=== PATIENT | female | born 1955 | race Caucasian/White ===

== ENCOUNTER 2023-07-26 10:10 | Inpatient (IN) | payer MEDICARE ==
--- NOTE | 2023-07-26 10:31 | ED ---
General Adult HPI - General Stated complaint: low sodium-sent by PCP Time Seen by Provider: 07/26/23 10:29 Source: patient, RN notes reviewed Mode of arrival: ambulatory Limitations: no limitations - History of Present Illness Initial comments: 68-year-old female presents emergency Department with chief complaint of hyponatremia. Patient sent in by PCP stating that sodium is 116. She states that it was 120 something and dropped further. She states that she has had some diarrhea also her PCP is concerned about possible tumor in her chest causing her hyponatremia. Patient states that she does not feel well she states she does feel very weak - Related Data Allergies Allergy/AdvReac Type Severity Reaction Status Date / Time erythromycin base AdvReac Abdominal Verified 07/26/23 10:27 Pain Penicillins AdvReac Rash/Hives Verified 07/26/23 10:27 Review of Systems ROS Statement: Those systems with pertinent positive or pertinent negative responses have been documented in the HPI. ROS Other: All systems not noted in ROS Statement are negative. General Exam - General Exam Comments Initial Comments: Visual Physical Exam Vital signs reviewed General: Well-appearing, nontoxic, no acute distress. Head: Normocephalic, atraumatic Eyes: PERRLA, EOMI ENT: Airway patent Chest: Nonlabored breathing Skin: No visual rash, normal skin tone Neuro: Alert and oriented 3 Musculoskeletal: No gross abnormalities Limitations: no limitations General appearance: alert, in no apparent distress Head exam: Present: atraumatic, normocephalic, normal inspection Eye exam: Present: normal appearance, PERRL, EOMI. Absent: scleral icterus, conjunctival injection, periorbital swelling ENT exam: Present: normal exam, normal oropharynx, mucous membranes moist Neck exam: Present: normal inspection, full ROM. Absent: tenderness, meningismus, lymphadenopathy Respiratory exam: Present: normal lung sounds bilaterally. Absent: respiratory distress, wheezes, rales, rhonchi, stridor Cardiovascular Exam: Present: regular rate, normal rhythm, normal heart sounds. Absent: systolic murmur, diastolic murmur, rubs, gallop, clicks GI/Abdominal exam: Present: soft, normal bowel sounds. Absent: distended, tenderness, guarding, rebound, rigid Neurological exam: Present: alert, oriented X3 Course Vital Signs 07/26/23 10:28 Temperature 98.6 F Pulse Rate 84 Respiratory 16 Rate Blood Pressure 123/80 O2 Sat by Pulse 97 Oximetry Medical Decision Making - Medical Decision Making I performed a quick note portion of the chart signed Guillermo Lerner PA-C Was pt. sent in by a medical professional or institution (DENISE Whitlock, OIL FIELD TECHNICIAN, urgent care, hospital, or fpc...) When possible be specific @ -PCP Did you speak to anyone other than the patient for history (EMS, parent, family, police, friend...)? What history was obtained from this source @ -No Did you review nursing and triage notes (agree or disagree)? Why? @ -I reviewed and agree with nursing and triage notes Were old charts reviewed (outside hosp., previous admission, EMS record, old EKG, old radiological studies, urgent care reports/EKG's, fpc records)? Report findings @ -Reviewed prior laboratory studies, charts Differential Diagnosis (chest pain, altered mental status, abdominal pain women, abdominal pain men, vaginal bleeding, weakness, fever, dyspnea, syncope, headache, dizziness, GI bleed, back pain, seizure, CVA, palpatations, mental health, musculoskeletal)? @ -Differential Weakness: Hypoglycemia, shock, sepsis, hyponatremia, anemia, infection, PA, ETOH, adverse medicine reaction, overdose, stroke, this is not meant to be an all-inclusive list.le EKG interpreted by me (3pts min.). @ -None X-rays interpreted by me (1pt min.). @ -None done CT interpreted by me (1pt min.). @ -CT chest is pending U/S interpreted by me (1pt. min.). @ -None done What testing was considered but not performed or refused? (CT, X-rays, U/S, labs)? Why? @ -None What meds were considered but not given or refused? Why? @ -None Did you discuss the management of the patient with other professionals (estelle erickson i.eDENISE Canales Dr., OIL FIELD TECHNICIAN, lab, RT, psych nurse, administrator social welfare, stripper and printer, teacher, commissioned defence force officer, case finisher)? Give summary @ -Dr. Grene for admission secondary to hyponatremia Was smoking cessation discussed for >3mins.? @ -No Was critical care preformed (if so, how long)? @ -No Were there social determinants of health that impacted care today? How? (Homelessness, low income, unemployed, alcoholism, drug addiction, transportation, low edu. Level, literacy, decrease access to med. care, senior living, rehab)? @ -No Was there de-escalation of care discussed even if they declined (Discuss DNR or withdrawal of care, Hospice)? DNR status @ -No What co-morbidities impacted this encounter? (DM, HTN, Smoking, COPD, CAD, Cancer, CVA, ARF, Chemo, Hep., AIDS, mental health diagnosis, sleep apnea, morbid obesity)? @ -None Was patient admitted / discharged? Hospital course, mention meds given and route, prescriptions, significant lab abnormalities, going to OR and other pertinent info. @ -Admitted patient has Hyponatremia at 118 patient was given fluid bolus, weakness fluids. Patient will be admitted for further evaluation, nephrology evaluation Undiagnosed new problem with uncertain prognosis? @ -No Drug Therapy requiring intensive monitoring for toxicity (Heparin, Nitro, Insulin, Cardizem)? @ -No Were any procedures done? @ -No Diagnosis/symptom? @ -Hyponatremia Acute, or Chronic, or Acute on Chronic? @ -Acute Uncomplicated (without systemic symptoms) or Complicated (systemic symptoms)? @ - complicated Side effects of treatment? @ -No Exacerbation, Progression, or Severe Exacerbation? @ -No Poses a threat to life or bodily function? How? (Chest pain, USA, PA, pneumonia, PE, COPD, DKA, ARF, appy, cholecystitis, CVA, Diverticulitis, Homicidal, Suicidal, threat to staff... and all critical care pts) @ -No - Lab Data Result diagrams: 07/26/23 12:04 07/26/23 12:04 Lab Results 07/26/23 07/26/23 07/26/23 Range/Units 12:04 12:04 12:04 WBC 9.0 (3.8-10.6) k/uL RBC 5.37 (3.80-5.40) m/uL Hgb 17.7 H (11.4-16.0) gm/dL Hct 49.7 H (34.0-46.0) % MCV 92.5 (80.0-100.0) fL MCH 33.0 (25.0-35.0) pg MCHC 35.6 (31.0-37.0) g/dL RDW 12.3 (11.5-15.5) % Plt Count 205 (150-450) k/uL MPV 7.9 Sodium 118 L* (137-145) mmol/L Potassium 5.3 H (3.5-5.1) mmol/L Chloride 82 L (98-107) mmol/L Carbon Dioxide 25 (22-30) mmol/L Anion Gap 11 mmol/L BUN 29 H (7-17) mg/dL Creatinine 0.89 (0.52-1.04) mg/dL Est GFR (CKD-EPI)AfAm 77 (>60 ml/min/1.73 sqM) Est GFR (CKD-EPI)NonAf 67 (>60 ml/min/1.73 sqM) Glucose 127 H (74-99) mg/dL Calcium 10.2 (8.4-10.2) mg/dL Magnesium 1.5 L (1.6-2.3) mg/dL Total Bilirubin 0.8 (0.2-1.3) mg/dL AST 36 (14-36) U/L ALT 24 (4-34) U/L Alkaline Phosphatase 61 (38-126) U/L Total Protein 7.6 (6.3-8.2) g/dL Albumin 4.8 (3.5-5.0) g/dL Urine Color Colorless Urine Appearance Clear (Clear) Urine pH 5.0 (5.0-8.0) Ur Specific [place] 1.005 (1.001-1.035) Urine Protein Negative (Negative) Urine Glucose (UA) Negative (Negative) Urine Ketones Negative (Negative) Urine Blood Negative (Negative) Urine Nitrite Negative (Negative) Urine Bilirubin Negative (Negative) Urine Urobilinogen <2.0 (<2.0) mg/dL Ur Leukocyte Esterase Negative (Negative) Disposition Clinical Impression: Hyponatremia Disposition: ADMITTED IP TO THIS HOSP Condition: Fair Referrals: Jose Ramos MD [Primary Care Provider] - 1-2 days Time of Disposition: 12:48
[2023-07-26] MEDS ORDERED: SODIUM CHLORIDE 0.9% 500 ML 500 ML IV ONE (11:16)
[2023-07-26 12:14] LABS: HCT 49.7 % (34.0-46.0); HGB 17.7 gm/dL (11.4-16.0); MCHC 35.6 g/dL (31.0-37.0); MCV 92.5 fL (80.0-100.0); Mean Platelet Volume 7.9; Platelet Count 205 k/uL (150-450); RBC 5.37 m/uL (3.80-5.40); RDW 12.3 % (11.5-15.5)
[2023-07-26] MEDS: SODIUM CHLORIDE 0.9% 1,000 ML IV SCH ×2 (12:17→12:19)
[2023-07-26 12:18] LABS: Appearance,Urine Clear (Clear); Bilirubin,Urine Negative (Negative); Blood,Urine Negative (Negative); Color,Urine Colorless; Glucose,Urine (UA) Negative (Negative); Ketones,Urine Negative (Negative); Leukocyte Esterase,Urine Negative (Negative); Nitrite,Urine Negative (Negative); Protein,Urine Negative (Negative); Specific Gravity,Urine 1.005 (1.001-1.035); Urobilinogen,Urine <2.0 mg/dL (<2.0)
[2023-07-26 12:25] LABS: ALT 24 U/L (4-34); AST 36 U/L (14-36); African American GFR (CKD) 77 (>60 ml/min/1.73 sqM); Albumin 4.8 g/dL (3.5-5.0); Alkaline Phosphatase 61 U/L (38-126); Anion Gap 11 mmol/L; Blood Urea Nitrogen 29 mg/dL (7-17); Calcium 10.2 mg/dL (8.4-10.2); Carbon Dioxide 25 mmol/L (22-30); Chloride 82 mmol/L (98-107); Glucose 127 mg/dL (74-99); Magnesium 1.5 mg/dL (1.6-2.3); Non-African American GFR(CKD) 67 (>60 ml/min/1.73 sqM); Potassium 5.3 mmol/L (3.5-5.1); Total Bilirubin 0.8 mg/dL (0.2-1.3); Total Protein 7.6 g/dL (6.3-8.2)
[2023-07-26 12:28] LABS: Sodium 118 mmol/L (137-145)
[2023-07-26] MEDS ORDERED: ONDANSETRON 4 MG/2 ML VIAL IVP PRN (12:48)
[2023-07-26] MEDS ORDERED: NALOXONE 0.4 MG/ML 1 ML VIAL IV PRN (12:48)
[2023-07-26] MEDS ORDERED: ACETAMINOPHEN TAB 325 MG TAB PO PRN (12:48)
--- NOTE | 2023-07-26 13:15 | CT ---
EXAMINATION TYPE: CT chest wo con DATE OF EXAM: 07/26/2023 COMPARISON: None HISTORY: low sodium CT DLP: 273.[address] of the chest was performed with lung and mediastinal window settings submitted. The la ck of contrast limits evaluation of the vascular, mediastinal and parenchymal structures including th e upper abdomen. LUNGS: Mild upper lobe emphysematous change. The lungs are clear and free of infiltrate. No atelectas is. No pulmonary nodule or mass is detected. No pleural effusion. No CT evidence of interstitial l garcia disease. MEDIASTINUM/EDER: Thoracic aorta is of normal caliber with limited evaluation given lack of contrast . The heart is not enlarged. No evidence for mediastinal mass. No lymph nodes greater than 1cm. UPPER ABDOMEN: No significant abnormality is seen. OTHER: No significant other abnormality. IMPRESSION: 1. Mild upper lobe emphysematous change. No evidence of infiltrate or mass.
[2023-07-26] MEDS ORDERED: Potassium Replacement Protocol 1 EACH MISC MISCELLANE PRN (13:47)
[2023-07-26] MEDS ORDERED: hydrALAZINE HCL 50 MG TAB PO PRN (13:47)
[2023-07-26] MEDS ORDERED: ALBUTEROL HFA INHALER INHALATION PRN (13:47)
[2023-07-26] MEDS ORDERED: Magnesium Replacement Protocol 1 EACH MISC MISCELLANE PRN (13:47)
[2023-07-26] MEDS ORDERED: LORazepam 0.5 MG TAB PO PRN (13:48)
--- NOTE | 2023-07-26 15:01 | P.NPCON ---
History of Present Illness - Reason for Consult hyponatremia - History of Present Illness Reason for consultation: Hyponatremia History of present illness: Patient is a 68-year-old female seen in consultation for hyponatremia. Patient's is her sodium level was running low around 120 and she saw her primary care physician. Her diuretic. Patient believes the diuretic was spironolactone. She had a bilirubin yesterday and was advised to go to the hospital her sodium level was down to 116. Today in the ER blood work shows sodium level of 118. She denies any vomiting or diarrhea. Oral intake has been good. Denies drinking excessive fluid. No history of cancer. She does admit to smoking 2 packs a day of cigarettes. No recent lung infection. She has history of hypertension and blood pressure is currently well controlled. She is on room air. No edema. GFR at baseline. No history of kidney disease. Vital signs are stable. General: No acute distress. HEENT: Head exam is unremarkable. LUNGS: No audible rhonchi or wheezes. HEART: Rate and Rhythm are regular. ABDOMEN: Nontender. EXTREMITITES: No edema. Past Medical History Past Medical History: COPD, Hyperlipidemia, Hypertension History of Any Multi-Drug Resistant Organisms: None Reported Past Surgical History: No Surgical Hx Reported Past Psychological History: No Psychological Hx Reported Smoking Status: Current every day smoker Past Alcohol Use History: Daily Past Drug Use History: None Reported Medications and Allergies Home Medications Medication Instructions Recorded Confirmed Type Albuterol Sulfate [Albuterol 1 - 2 puff PO RT-Q6H PRN 07/26/23 07/26/23 History Sulfate Hfa] Cholecalciferol [Vitamin D3 (25 50 mcg PO DAILY 07/26/23 07/26/23 History Mcg = 1000 Iu)] Esomeprazole Magnesium [NexIUM] 40 mg PO DAILY 07/26/23 07/26/23 History Magnesium 750 mg PO HS 07/26/23 07/26/23 History Metoprolol Succinate (ER) [Toprol 25 mg PO DAILY 07/26/23 07/26/23 History Xl] Montelukast Sodium 10 mg PO HS 07/26/23 07/26/23 History Olmesartan Medoxomil [Benicar] 40 mg PO DAILY 07/26/23 07/26/23 History amLODIPine [Norvasc] 5 mg PO DAILY 07/26/23 07/26/23 History hydrALAZINE HCL [Apresoline] 50 mg PO BID PRN 07/26/23 07/26/23 History Allergies Allergy/AdvReac Type Severity Reaction Status Date / Time erythromycin base AdvReac Abdominal Verified 07/26/23 13:03 Pain Penicillins AdvReac Rash/Hives Verified 07/26/23 13:03 Physical Exam Vitals: Vital Signs Temp Pulse Resp BP Pulse Ox 07/26/23 14:00 93 18 116/54 98 07/26/23 10:28 98.6 F 84 16 123/80 97 Intake and Output 07/25/23 07/26/23 07/26/23 22:59 06:59 14:59 Other: Weight 65.771 kg Results - Lab Results Most recent lab results Calcium 10.2 mg/dL (8.4-10.2) 07/26/23 12:04 Magnesium 1.5 mg/dL (1.6-2.3) L 07/26/23 12:04 07/26/23 12:04 07/26/23 12:04 Assessment and Plan Plan: Assessment: 1. Hyponatremia. Appears euvolemic. Sodium level 118 today. TSH normal. No malignancy noted on CT chest. 2. Tobacco abuse. 3. Benign hypertension. Currently controlled. 4. Hypomagnesemia possibly from poor intake and PPI use. Plan: Maintain normal saline. Add 1500 mL fluid restriction. Encourage oral intake. Check serum and urine osmolality and urine sodium level. Check a.m. cortisol level. Check PTH related peptide. Repeat sodium level at 5 PM. Hold amlodipine for systolic blood pressure less than 120. Replace magnesium. Thank you for the consultation. I will continue to follow the patient with you during her hospital stay.
[2023-07-26] MEDS: NICOTINE 14MG/24HR PATCH TRANSDERM SCH (18:47)
[2023-07-26] MEDS: MAGNESIUM OXIDE 400 MG TAB PO SCH (20:30)
[2023-07-26] MEDS ORDERED: MONTELUKAST 10 MG TAB PO SCH (21:00)
[2023-07-26] MEDS ORDERED: MAGNESIUM OXIDE 400 MG TAB PO SCH (21:00)
[2023-07-26 22:16] VITALS: RESP 16
--- NOTE | 2023-07-27 01:37 | HP ---
HISTORY AND PHYSICAL CHIEF COMPLAINT: Hyponatremia. HISTORY OF PRESENT ILLNESS: This is a 68-year-old woman with a past medical history of multiple medical history of COPD, hypertension, hyperlipidemia, was not feeling well over the past couple of weeks. The patient has significant diarrhea. Sodium was found to be 116. The patient initially had sodium of 120, and because of lack of improvement, the patient came to [facility] for evaluation and treatment. Currently, her sodium is 118 and is hospitalized at . There is no history of any fever or rigors. PAST MEDICAL HISTORY: Hypertension, hyperlipidemia, COPD. HOME MEDICATIONS: Include Singulair. Dose and rest of medications noted. ALLERGIES: Erythromycin. FAMILY HISTORY: No history of heart disease or strokes in the family. SOCIAL HISTORY: History of smoking. REVIEW OF SYSTEMS: 14-point review is negative except as mentioned. PHYSICAL EXAMINATION: VITAL SIGNS: Pulse 84, blood pressure 120/80, respirations 16. HEENT: Conjunctivae normal. Oral mucosa is dry. NECK: No jugular venous distention. No carotid bruit. RESPIRATION: Diminished at the bases. No rhonchi. No crackles. ABDOMEN: Soft, nontender. LEGS: No edema, no cyanosis. NEUROLOGIC: No focal deficit. SKIN: No ulcer, rash, or swelling. JOINTS: No active deforming arthropathy LABORATORY DATA: Reviewed. Sodium 119. ASSESSMENT: 1. Hypovolemic hyponatremia, possibly rule out syndrome of inappropriate antidiuretic hormone secretion. 2. Chronic obstructive pulmonary disease. 3. Hypertension. 4. Hyperlipidemia. 5. History of recent diarrheal episode. RECOMMENDATION: This 68-year-old woman presented with multiple complex medical issues, we will monitor the patient closely. I would recommend IV fluids. Nephrology consultation, monitor sodium closely, resume the home medications. Monitor fluid/electrolyte balance closely and CT scan of the chest was also done showed only emphysematous changes in the upper lobes. No other significant lesions were identified. Prognosis guarded. Further recommendations to follow. See orders for details. MMODL / IJN: [id number] / MTDD
[2023-07-27] MEDS ORDERED: PANTOPRAZOLE 40 MG TABLET PO SCH (07:30)
[2023-07-27 07:36] VITALS: BP 109/70; PULSE 88; TEMP 97.5
[2023-07-27] MEDS: MAGNESIUM OXIDE 400 MG TAB PO SCH (08:28)
[2023-07-27] MEDS: NICOTINE 14MG/24HR PATCH TRANSDERM SCH (08:29)
[2023-07-27] MEDS: amLODIPine 5 MG TAB PO SCH ×2 (08:29→08:31)
[2023-07-27] MEDS: SODIUM CHLORIDE 0.9% 1,000 ML IV SCH (08:30)
[2023-07-27] MEDS: IOPAMIDOL CONTRAST (ORAL USE) VIAL PO PRN ×2 (08:45→09:51)
[2023-07-27] MEDS ORDERED: LOSARTAN 50 MG TAB PO SCH ×2 (09:00)
[2023-07-27] MEDS ORDERED: METOPROLOL SUCCINATE (ER) 25 MG TAB.ER.24H PO SCH (09:00)
[2023-07-27] MEDS ORDERED: CHOLECALCIFEROL 25 MCG (1000 IU) TABLET PO SCH (09:00)
--- NOTE | 2023-07-27 11:58 | P.PN ---
Subjective Patient is seen in follow-up for hyponatremia. Sodium level 121 as of last night. Currently on normal saline at 75 mL an hour. No chest pain or shortness of breath. Vital signs are stable. General: No acute distress. HEENT: Head exam is unremarkable. LUNGS: No audible rhonchi or wheezes. HEART: Rate and Rhythm are regular. ABDOMEN: Nontender. EXTREMITITES: No edema. Objective - Vital Signs Vital signs: Vital Signs Temp 97.5 F L 07/27/23 07:03 Pulse 88 07/27/23 07:03 Resp 16 07/27/23 07:03 BP 109/70 07/27/23 07:03 Pulse Ox 94 L 07/27/23 07:03 FiO2 Intake & Output 07/26/23 07/27/23 07/27/23 18:59 06:59 18:59 Intake Total 750 720 Balance 750 720 Weight 65.771 kg 65.771 kg Intake: IV 250 Sodium Chloride 0.9% 1, 250 000 ml @ 75 mls/hr IV . [id number] [facility] Rx#:[id number] Oral 500 720 Other: # Voids 1 1 - Labs CBC & Chem 7: 07/26/23 12:04 07/26/23 16:50 Labs: Abnormal Lab Results - Last 24 Hours (Table) 07/26/23 07/26/23 07/26/23 Range/Units 12:04 12:04 12:04 Hgb 17.7 H (11.4-16.0) gm/dL Hct 49.7 H (34.0-46.0) % Sodium 118 L* (137-145) mmol/L Potassium 5.3 H (3.5-5.1) mmol/L Chloride 82 L (98-107) mmol/L BUN 29 H (7-17) mg/dL Glucose 127 H (74-99) mg/dL Osmolality 254 L (280-301) mosm/kg Magnesium 1.5 L (1.6-2.3) mg/dL Ur Random Sodium 26 L (40-220) mmol/L 07/26/23 07/26/23 Range/Units 16:50 16:50 Hgb (11.4-16.0) gm/dL Hct (34.0-46.0) % Sodium 121 L (137-145) mmol/L Potassium (3.5-5.1) mmol/L Chloride (98-107) mmol/L BUN (7-17) mg/dL Glucose (74-99) mg/dL Osmolality 264 L (280-301) mosm/kg Magnesium (1.6-2.3) mg/dL Ur Random Sodium (40-220) mmol/L Assessment and Plan Plan: Assessment: 1. Hyponatremia. Appears euvolemic. Sodium level 121 as of yesterday evening. TSH normal. No malignancy noted on CT chest. Urine sodium 26 and urine osmolality to 11. 2. Tobacco abuse. 3. Benign hypertension. Currently controlled. 4. Hypomagnesemia possibly from poor intake and PPI use. Plan: Maintain normal saline. Maintain 1500 mL fluid restriction. Encourage oral intake. Add ensure 3 times a day with meals. Follow-up a.m. cortisol level. Follow-up PTH related peptide. Follow-up computed tomography scan. Morning labs pending.
[2023-07-27 13:45] LABS: Basophils # (A) 0.05 X 10*3/uL (0.00-0.10); Basophils % (A) 0.8 %; Eosinophils # (A) 0.13 X 10*3/uL (0.04-0.35); Eosinophils % (A) 2.1 %; HCT 42.8 % (37.2-46.3); Lymphocytes # (A) 1.77 X 10*3/uL (0.90-5.00); Lymphocytes % (A) 28.2 %; MCH 31.6 pg (27.0-32.0); MCV 90.3 FL (80.0-97.0); Mean Platelet Volume 10.3 FL (9.5-12.2); Monocytes # (A) 0.92 X 10*3/uL (0.20-1.00); Monocytes % (A) 14.7 %; NRBC Per 100 WBC 0 X 10*3/uL (0.00-0.01); Neutrophils # (A) 3.36 X 10*3/uL (1.80-7.70); Neutrophils % (A) 53.6 %; Platelet Count 177 X 10*3/uL (140-440); RBC 4.74 X 10*6/uL (4.10-5.20); WBC 6.27 X 10*3/uL (4.50-10.00)
[2023-07-27 14:02] LABS: ALT 19 U/L (8-44); AST 25 U/L (13-35); Albumin/Globulin Ratio 2.35 Ratio (1.60-3.17); Alkaline Phosphatase 50 U/L (41-126); Blood Urea Nitrogen 19.8 mg/dL (9.0-27.0); C Reactive Protein <0.30 mg/dL (0.00-0.80); Calcium 8.9 mg/dL (8.7-10.3); Carbon Dioxide 23.7 mmol/L (21.6-31.8); Chloride 93 mmol/L (96-109); Globulin 1.7 g/dL (1.6-3.3); Glucose 88 mg/dL (70-110); Magnesium 1.6 mg/dL (1.5-2.4); Potassium 4.8 mmol/L (3.5-5.5); Sodium 126 mmol/L (135-145); Total Bilirubin 0.3 mg/dL (0.3-1.2); Total Protein 5.7 g/dL (6.2-8.2)
[2023-07-27 14:10] LABS: Erythrocyte Sedimentation Rate 5 mm/Hr (0-30)
--- NOTE | 2023-07-27 19:13 | CT ---
EXAMINATION TYPE: CT abdomen pelvis wo/w con DATE OF EXAM: 07/27/2023 COMPARISON: NONE HISTORY: 68-year-old female Severe hyponatremia, r/o malignancy. TECHNIQUE: Contiguous axial scanning of the abdomen and pelvis before and after administration of 100 ml Isovue 300 IV contrast. Delayed images through the kidneys and coronal/sagittal reconstructions performed. CT DLP: 931.60 mGycm Automated exposure control for dose reduction was used. FINDINGS: The heart is normal size without pericardial effusion. Suggestion of some underlying emphys ematous change in the lower lungs. Approximately 3 small hepatic hypodensities measuring up to 9 mm likely tiny cysts. A calcification i n the left liver lobe may reflect sequela of prior granulomatous disease. Portal venous system is pat ent. No biliary ductal dilatation. Gallbladder, right kidney, and pancreas within normal limits. There is a 2.0 cm cortical cyst posteri or left kidney. Symmetric uptake and excretion of contrast from both kidneys. Punctate calcification in the spleen may reflect prior granulomatous disease. Suggestion of moderate diffuse gastric fold thickening. There is mild diffuse bilateral adrenal thickening without discrete nodularity. No dilated small bowel, free fluid, or free air. No mesenteric or retroperitoneal lymphadenopathy. Normal appendix. Oral contrast has progressed to the rectum. There is a redundant mid to distal sigmo id colon. Mild sigmoid diverticulosis. No pericolonic inflammatory change. Bladder partially distended. Uterus anteverted. Both ovaries are visualized. Mild circumferential felipe dder wall thickening may be chronic for the patient. No abnormal fluid collection in the pelvis or pe lvic lymphadenopathy. Bones: Mild degenerative change at the hips. Moderate to advanced degenerative disc disease L5-S1 and facet arthropathy lower lumbar spine. Degenerative grade 1 retrolisthesis L2-L3. IMPRESSION: 1. MODERATE FOLD THICKENING THROUGHOUT THE STOMACH MAY REFLECT UNDERLYING GASTRITIS. CORRELATE WITH S YMPTOMS. DIRECT VISUALIZATION IF CLINICALLY INDICATED. 2. MILD SIGMOID DIVERTICULOSIS WITHOUT ACUTE DIVERTICULITIS. 3. MILD CIRCUMFERENTIAL BLADDER WALL THICKENING MAY BE CHRONIC FROM THE PATIENT. CORRELATE TO EXCLUDE CYSTITIS. 4. MILD DIFFUSE THICKENING OF THE BILATERAL ADRENAL GLANDS MAY REFLECT UNDERLYING ADRENAL HYPERPLASIA . NO DISCRETE NODULARITY IS SEEN. 5. NO SUSPICIOUS MASS OR LYMPHADENOPATHY IDENTIFIED.
--- NOTE | 2023-07-29 09:54 | P.DS ---
Providers Date of admission: 07/26/23 12:44 Expected date of discharge: 07/29/23 Attending physician: Esperanza Green Consults: 07/26/23 12:48 Consult Physician Urgent Consulting Provider: Jose Ramos Consult Reason/Comments: Hyponatremia Do you want consulting provider notified?: Yes Primary care physician: Jose Ramos [facility] Course: Final diagnosis Hypovolemic hyponatremia, possibly rule out SIADH X Chronic obstructive pulmonary disease, not an exacerbation Hypertension Hyperlipidemia History of recent diarrheal episode Alcohol use Continued ongoing nicotine abuse Hypomagnesemia GI prophylaxis DVT prophylaxis Full code Discharge disposition Patient is being discharged in a stable condition with guarded prognosis to home. Patient will follow-up with Dr. Ramos in the outpatient setting upon discharge. Patient is to continue with close monitoring of sodium levels and close outpatient follow-up with nephrology as scheduled. Repeat labs ordered for the next few days. Continue fluid restrictions. Total time taken is greater than 35 minutes. Hospital course This is a 68-year-old female who was recently admitted with hyponatremia and had not been feeling well over the last few weeks. Patient was at primary care provider's office and instructed to come here for further evaluation with hydration and hyponatremia protocol. Patient had been experiencing diarrhea which has subsided. Nephrology following recommended close outpatient follow- up. Patient did undergo CT of the chest which showed moderate fold thickening throughout the stomach that may reflect underlying gastritis with mild sigmoid diverticulosis with any acute diverticulitis and mild circumferential bladder wall thickening that may be chronic from cystitis. There is some mild diffuse thickening of the bilateral adrenal glands that may reflect underlying adrenal hyperplasia with no discrete nodularity seen otherwise no suspicious mass or lymphadenopathy identified. Repeat sodium today is 126 and patient reports to feeling much improved and adamant about going home as her is receiving surgery today. Magnesium was 1.6 and replaced as well and recommend close outpatient follow-up with repeat labs. Complete alcohol cessation has been discussed extensively. Recommend outpatient follow-up with nephrology to continue further workup. Please refer to other consultation notes for further HPI. Patient has been also counseled on fluid restrictions of 1500 mL's per day. Currently no reports of chest pain, shortness of breath, or palpitations. Patient is afebrile. No reports of nausea or vomiting and patient is tolerating diet. Patient will be discharged home today. Physical exam: Gen: This is a 68-year-old female who is awake, alert and oriented 3, well- developed, well-nourished HEENT: Head is atraumatic, normocephalic. Pupils equal, round. Sclerae is anicteric. NECK: Supple. No JVD. No lymphadenopathy. No thyromegaly. LUNGS: Clear to auscultation. No wheezes or rhonchi. No intercostal retractions. HEART: Regular rate and rhythm. No murmur. ABDOMEN: Soft. Bowel sounds are present. No masses. No tenderness. EXTREMITIES: No pedal edema. No calf tenderness. NEUROLOGICAL: Patient is awake, alert and oriented x3. Cranial nerves 2 through 12 are grossly intact. Please refer to medication reconciliation sheet for a list of medications. The impression and plan of care has been dictated by Melissa Jamison, Nurse Practitioner as directed. Dr. Peter MD I have performed a history and examination and MDM of this patient, discussed the same with the dictator, and agree with the dictator's assessment and plan as written ,documented as a scribe. Based on total visit time, I have performed more than 50% of the visit. Patient Condition at Discharge: Fair Plan - Discharge Summary New Discharge Prescriptions: Continue hydrALAZINE HCL [Apresoline] 50 mg PO BID PRN PRN Reason: BP>150 Olmesartan Medoxomil [Benicar] 40 mg PO DAILY Esomeprazole Magnesium [NexIUM] 40 mg PO DAILY Montelukast Sodium 10 mg PO HS amLODIPine [Norvasc] 5 mg PO DAILY Metoprolol Succinate (ER) [Toprol XL] 25 mg PO DAILY Albuterol Sulfate [Albuterol Sulfate Hfa] 1 - 2 puff PO RT-Q6H PRN PRN Reason: Shortness Of Breath Magnesium 750 mg PO HS Cholecalciferol [Vitamin D3 (25 Mcg = 1000 Iu)] 50 mcg PO DAILY Discharge Medication List Albuterol Sulfate [Albuterol Sulfate Hfa] 1 - 2 puff PO RT-Q6H PRN 07/26/23 [History] Cholecalciferol [Vitamin D3 (25 Mcg = 1000 Iu)] 50 mcg PO DAILY 07/26/23 [History] Esomeprazole Magnesium [NexIUM] 40 mg PO DAILY 07/26/23 [History] Magnesium 750 mg PO HS 07/26/23 [History] Metoprolol Succinate (ER) [Toprol XL] 25 mg PO DAILY 07/26/23 [History] Montelukast Sodium 10 mg PO HS 07/26/23 [History] Olmesartan Medoxomil [Benicar] 40 mg PO DAILY 07/26/23 [History] amLODIPine [Norvasc] 5 mg PO DAILY 07/26/23 [History] hydrALAZINE HCL [Apresoline] 50 mg PO BID PRN 07/26/23 [History] Follow up Appointment(s)/Referral(s): Jose Ramos MD [Primary Care Provider] - 08/03/23 2:30 pm (Appointment is with Nancy WALKER) Patient Instructions/Handouts: Hyponatremia (DC) Discharge Disposition: HOME SELF-CARE
--- NOTE | 2023-07-29 15:07 | CDI ---
Documentation Clarification Form Date: 07/29/2023 02:45:48 PM From: Kirstin Thao RN, CCDS Email: [email or web address] Admit Date: 07/26/2023 12:44:00 PM Patient Name: Karo Rojas Visit Number: [id number] Discharge Date: 07/27/2023 02:53:00 PM ATTENTION: The Clinical Documentation Specialists (CDI) and [facility] Coding Staff appreciate your assistance in clarifying documentation. Please respond to the clarification below the line at the bottom and electronically sign. The CDI & [facility] Coding staff will review the response and follow-up if needed. Please note: Queries are made part of the Legal Health Record. If you have any questions, please contact the author of this message via ITS. Dr. Esperanza Green Your patient had a sodium level of 118 on admission. Further clarification is requested. History/Risk Factors: COPD, HTN. Presented with diarrhea. Admitted with hyponatremia possibly rule out SIADH. Clinical indicators: 07/26-07/27 Na: 118-121-126 07/26 serum osmolality: 254-264 07/26 Urine: osmolality 211, Na 26 H&P: "Hypovolemic hyponatremia, possibly rule out syndrome of inappropriate antidiuretic hormone secretion." Nephrology: "Hyponatremia. Appears euvolemic. Sodium level 118 today. TSH normal. No malignancy noted on CT chest." Discharge summary: "Hypovolemic hyponatremia, possibly rule out SIADH X." Treatment: Monitor lab levels; fluid restriction; 0.9 NS 1L IV bolus on 07/26 then 75mL/hr Please clarify if possible SIADH is a valid diagnosis? [ ] Yes [ ] No [ ] Other [ ] Unable to determine ] No MTDD
== END 2023-07-27 14:53 | disposition home or self-care (01) | DRG 641 ==
LOC: EC 10:10 → 4SSUR 12:44 → 5NMEDONC 16:23
PROVIDERS: ADMIT Hospitalist; ATTEND Hospitalist
DX: E87.1 Hypo-osmolality and hyponatremia (principal); J44.9 Chronic obstructive pulmonary disease, unspecified; I10 Essential (primary) hypertension; E78.5 Hyperlipidemia, unspecified; E86.1 Hypovolemia; E83.42 Hypomagnesemia; F17.210 Nicotine dependence, cigarettes, uncomplicated; Z79.899 Other long term (current) drug therapy; Z88.1 Allergy status to other antibiotic agents; Z88.0 Allergy status to penicillin
CPT/HCPCS: 36415; 71250; 74178; 80053; 81003; 82533; 83735; 83930; 83935; 84295; 84300; 84443; 85025; 85027; 85652; 86140; 96360; 96361; 99285